=== PATIENT | female | born 1955 | race Caucasian/White ===

== ENCOUNTER 2018-11-06 06:07 | Day surgery (SDC) | payer OTHER ==
[~2018-11-06] VITALS: Ht 152.4 cm; Wt 63.5 kg
[2018-11-06 06:32] VITALS: BP 149/79
[2018-11-06 11:33] VITALS: BP 131/72
== END 2018-11-06 11:15 | disposition home or self-care (01) ==
LOC: DS 06:07 → OR 08:30 → DS 08:30
PROVIDERS: Obstetrics & Gynecology
PROC: 0UDB7ZZ Extraction of Endometrium, Via Natural or Artificial Opening (ICD-10-PCS; principal; 2018-11-06 08:30)
DX: N95.0 Postmenopausal bleeding (principal); I10 Essential (primary) hypertension; E11.9 Type 2 diabetes mellitus without complications; E78.5 Hyperlipidemia, unspecified
CPT/HCPCS: 82962; C1758; J1170; J2250; J2704; J3010; J7030

== ENCOUNTER 2019-04-09 06:04 | Inpatient (IN) | payer OTHER ==
[~2019-04-09] VITALS: Ht 154.9 cm; Wt 61.8 kg
[2019-04-09 06:29] VITALS: BP 137/78
[2019-04-09 09:25] VITALS: BP 117/59
--- NOTE | 2019-04-09 09:30 | NUR ---
ADMITTED FR.RECOVERY ROOM S/P TOTAL ABD'L HYSTERECTOMY W/ BILAT SALPHINGO-OOPHERECTOMY.AAO X4.PT DROWSY BUT EASILY AROUSABLE.LUNGS CLEAR.PT NONE-TELE.IV SALINE LOCKED.ABDOMINAL DRESSING CDI.NO SIGNS OF BLEEDING.ADMISSION ASSESSMENT AND HX COMPLETED.DAUGHTER AT BEDSIDE HELPED WITH OBTAINING HISTORY.CALL LIGHT WITHIN REACH.INSTRUCTED TO CALL FOR ANY PAIN/DISCOMFORT.WILL CONTINUE TO MONITOR PT.
--- NOTE | 2019-04-09 14:08 | NUR ---
GAVE PT NORCO 1 TAB ORDERED PRN FOR C/O INCISSIONAL PAIN AT 10/10 PAIN SCALE WILL CONTINUE TO MONITOR PT
--- NOTE | 2019-04-09 14:20 | NUR ---
CALLED INFORMED HIM OF PT'S UNRELEIVED PAIN AFTER GIVING HER NORCO. ORDERED TORADOL 15 MG IVP Q 4 HOURS PRN.
--- NOTE | 2019-04-09 15:09 | NUR ---
GAVE TORADOL 15 MG IVP ORDERED FOR C/O INCISSIONAL PAIN AT 8/10 PAIN SCALE.
[2019-04-09 17:20] VITALS: BP 126/80
[2019-04-09] MEDS ORDERED: LISINOPRIL10 MG PO (18:01)
[2019-04-09] MEDS ORDERED: METFORMIN500 M1 PO (18:02)
[2019-04-09] MEDS ORDERED: SIMVASTATIN20 M1 PO (18:03)
[2019-04-09] MEDS ORDERED: ASPIRIN ADULT L81 M5 PO (18:04)
[2019-04-09] MEDS ORDERED: D-20001 TAB PO (18:06)
[2019-04-09] MEDS ORDERED: NAPROSYN500 MG PO (18:07)
[2019-04-09] MEDS ORDERED: EPZICOM1 TAB (18:08)
[2019-04-09] MEDS ORDERED: PAROXETINE10 M1 PO (18:08)
--- NOTE | 2019-04-09 20:00 | NUR ---
PT A/A/O X4, FAMILY AT BEDSIDE. PT DENIES DIZZINESS AND HEADACHE. BREATH SOUNDS CLEAR. BREATHING EVEN AND UNLABORED ON ROOM AIR. DENIES CHEST PAIN AND PRESSURE. BOWEL SOUNDS ACTIVE. NO C/O N/V C/O ABD DISCOMFORT 5/10 PAIN LEVEL. DENIES NEED FOR PAIN MEDICATION THUS FAR. SURGICAL WOUND WITH DRESSING NOTED ON THE LOWER ABDOMEN C/D/I. IV SALINE LOCK NOTED ON THE RIGHT HAND. MADE PT COMFORTABLE. PLACED CALL LIGHT WITH IN REACH. WILL CONTINUE TO MONITOR.
--- NOTE | 2019-04-09 20:15 | NUR ---
PT DENIES PASSING GAS AND BURPING THUS FAR. GAO CATH IN PLACE AND DRAINING TO GRAVITY WITH YELLOW URINE.
[2019-04-09 20:34] VITALS: BP 121/71
--- NOTE | 2019-04-09 20:58 | NUR ---
PT C/O ABD PAIN. GAVE PT NORCO PO. PT TOLERATED IT WELL. WILL CONTINUE TO MONITOR.
--- NOTE | 2019-04-09 21:56 | NUR ---
PT C/O NORCO NOT WORKING. PAGED DR. Roxann GARCIA. WAITING FOR CALL BACK. WILL CONTINUE TO MONITOR.
--- NOTE | 2019-04-09 22:16 | NUR ---
PT C/O PAIN. C/O NORCO NOT WORKING. REMBERTO STEPHENSON GAVE PT TORADOL IVP. PT TOLERATED IT WELL. WILL CONTINUE TO MONITOR.
--- NOTE | 2019-04-09 22:21 | NUR ---
SPOKE WITH DR. Roxann GARCIA VIA PHONE REGARDING PT. ORDER RECEIVED AND CARRIED OUT. WILL CONTINUE TO MONITOR.
--- NOTE | 2019-04-10 00:54 | NUR ---
CLAMPED GAO CATH FOR BLADDER TRAINING. PT TOLERATED IT WELL. WILL CONTINUE TO MONITOR.
[2019-04-10 05:24] VITALS: BP 98/54
[2019-04-10 06:11] LABS: BASOPHIL % 0.3 % (0-2); PLATELET COUNT 291 x10^3mcL (130-400); RED CELL DISTRIBUTION WIDTH 12.6 % (11.5-14.5)
--- NOTE | 2019-04-10 06:48 | NUR ---
PT C/O ABD PAIN. GAVE PT TORADOL IVP. PT TOLERATED IT WELL. GAO CATH DC'D. MADE PT COMFORTABLE. WILL ENDORSE TO THE AM NURSE ACCORDINGLY.
[2019-04-10 08:26] VITALS: BP 129/69
--- NOTE | 2019-04-10 10:24 | NUR ---
AT 0725 - RECEIVED PATIENT FROM NIGHT NURSE. AWAKE, ALERT AND ORIENTED. RESPIRATIONS REGULAR. ABDOMINAL DRESSING DRY AND INTACT. HAS BEEN MEDICATED FOR PAIN EARLIER. GAO CATHETER WAS REMOVED AT 0630. PATIENT SAT UP IN BED FOR CLEAR LIQUID DIET BREAKFAST. AT 0820 - PATIENT ASSISTED OUT OF BED TO BATHROOM. VOIDED 600 ML POST REMOVAL OF GAO CATH. RETURNED TO BED. ENCOURAGED AMBULATION AND USE OF INSNETIVE SPIROMETER. AT 0910 - MEDICATED FOR PAIN WITH MOTRIN 800 MG PER EMAR. AT 1010 - PATIENT SLEEPING. RESPIRATIONS REGULAR.
--- NOTE | 2019-04-10 11:10 | NUR ---
AMBULATING IN ROOM WITH DAUGHTER.
--- NOTE | 2019-04-10 14:23 | NUR ---
AT 1130 - PATIENT AMBULATED IN HALLWAY WITH PHYSICAL THERAPY. REPROTEDLY HINDERED BY PAIN DURING MOVEMENT. AT 1220 - BLOOD GLUCOSE 183. GIVEN 3 UNITS REGULAR INSULIN PER SLIDING SCALE. ALSO MEDICATED FOR PAIN WITH NORCO PER EMAR. AT 1405 - RESTING QUIETLY. FAMILY AT BEDSIDE. PAIN UNDER CONTROL AT THIS TIME. HAS BEEN VOIDING IN BATHROOM AND TOLERATING CLEAR LIQUID DIET.
[2019-04-10 17:41] VITALS: BP 119/62
--- NOTE | 2019-04-10 18:14 | NUR ---
AT 1635 - SEEN BY DR BROOKS. NEW ORDERS RECEIVED. TO REMAIN ON CLEAR LIQUIDS UNTIL PASSING GAS. FOR REGLAN 10 MG PO QID AND SIMETHACONE 80 MG TID. PLAN TO DC HOME TOMORROW.
--- NOTE | 2019-04-10 18:16 | NUR ---
PATIENT SITTING IN CHAIR. VSS AND WNL. AFEBRILE. PAIN APPEARS UNDER CONTROL AT THIS TIME. DRESSING REMAINS DRY AND INTACT. SMALL AMOUNT OF DARK BLOOD ON PER-PADS. AMBULATION ENCOURAGED AND PATIENT AMBULATING SHORT DISTANCES. TOLERATING CLEAR LIQUID DIET. USING INSENTIVE SPIROMETER EFFECTIVELY. WILL ENDORSE CARE TO NIGHT NURSE.
--- NOTE | 2019-04-10 19:30 | NUR ---
RECEIVED PT FROM DAY SHIFT RN. PT IS ALERT AND ORIENTED X4 AND FAMILY IS CURRENTLY AT THE BEDSIDE. PT DENIES CHEST PAIN OR SHORTNESS OF BREATH AT THIS TIME. BREATHING IS EVEN THERE ARE NO SIGNS OR SYMPTOMS OF DISTRESS AT THIS TIME. ABD IS SOFT AND ROUND. HYPOACTIVE BOWEL SOUNDS HEARD. PT DENIES PAIN AT THIS TIME. SURGICAL DRESSING IS CLEAN DRY AND INTACT. PT REPORTS MINIMAL VAGINAL BLEEDING. PT IS AMBULATORY. R HAND IV CLEAN DRY AND INTACT AT THIS TIME. PT WANTS IV REMOVED. EDUCATED PT ON IMPORTANCE OF HAVING IV ACCESS DURING HER STAY IN THE HOSPITAL. SAFETY MEASURES ARE IN PLACE. BED IN LOWEST POSITION. CALL LIGHT IS WITHIN REACH. WILL CONTINUE TO MONITOR.
[2019-04-10 21:02] VITALS: BP 120/55
--- NOTE | 2019-04-11 00:59 | NUR ---
RECEIVED REPORT FROM DEMETRIA STEPHENSON REGARDING PT TO TAKE OVER CARE. PT RESTING WITH EYES CLOSED. NO DISTRESS AND DISCOMFORT NOTED. WILL CONTINUE TO MONITOR.
[2019-04-11 06:15] VITALS: BP 125/71
--- NOTE | 2019-04-11 06:25 | NUR ---
PT C/O ABD PAIN. GAVE PT MOTRIN PO. PT TOLERATED IT WELL. DRESSING ON THE ABDOMEN C/D/I. MADE PT COMFORTABLE. PLACED CALL LIGHT WITH IN REACH. WILL CONTINUE TO MONITOR.
--- NOTE | 2019-04-11 07:05 | NUR ---
RECEIVED PT FROM SECURITIES RESEARCH ANALYST NURSE. PT RESTING IN BED, AOX4, RESP E/U ON RA. DENIES PAIN TO ABD AT THIS TIME. S/P TAHBSO W/ ABD DRESSING CDI. SALINE LOCK TO R HAND W/ NO ERYTHEMA OR EDEMA. BED IN LOWEST POSITION AND CALL LIGHT WITHIN REACH. WILL CONTINUE TO MONITOR.
[2019-04-11 09:04] VITALS: BP 124/69
[2019-04-11 11:45] VITALS: BP 124/69
--- NOTE | 2019-04-11 12:30 | NUR ---
PT DISCHARGED. REVIEWED VISIT SUMMARY AND EDUCATIONAL PACKET W/ PT INCLUDING FOLLOW UP INSTRUCTIONS. PT AOX4, RESP E/U ON RA, VS STABLE. IV REMOVED, CATH INTACT, GAUZE DRESSING APPLIED. PT ESCORTED TO DISHARGE OFFICE BY JAROD LANG VIA WHEELCHAIR W/ NO ACUTE INCIDENCE.
== END 2019-04-11 12:36 | disposition home or self-care (01) | DRG 513 ==
LOC: MU 06:04 → DU 07:30 → MU 09:25
PROVIDERS: ADMIT Obstetrics & Gynecology
PROC: 0UT20ZZ Resection of Bilateral Ovaries, Open Approach (ICD-10-PCS; 2019-04-09)
PROC: 0UT70ZZ Resection of Bilateral Fallopian Tubes, Open Approach (ICD-10-PCS; 2019-04-09)
PROC: 0UT90ZZ Resection of Uterus, Open Approach (ICD-10-PCS; principal; 2019-04-09 07:30)
DX: N85.00 Endometrial hyperplasia, unspecified (principal); N92.1 Excessive and frequent menstruation with irregular cycle
CPT/HCPCS: 82962; 94150; 97116-GP; 97530-GP; G0378; J0330; J0690; J1170; J1885; J2175; J2250; J2405; J2704; J2710; J3010; J3490; J7030; J8597